=== PATIENT | male | born 1930 | race Caucasian/White ===

== ENCOUNTER 2017-07-21 20:32 | Inpatient (IN) | payer MEDICARE, BC ==
[2017-07-21] MEDS ORDERED: Acetaminophen 325 MG Tab PO ONE (21:40)
[2017-07-21 21:45] LABS: ANION GAP 12.5; CHLORIDE,CL 97 mmol/L (101-111); SODIUM,NA 130 mmol/L (135-145)
[2017-07-21] MEDS ORDERED: Albuterol/Ipratropium 3.0-0.5 MG/3 ML Neb Soln NEB ONE (21:47)
--- NOTE | 2017-07-21 22:27 | EDM.PDOC ---
ED HPI GENERAL MEDICAL PROBLEM - General Chief Complaint: Respiratory Problem Stated Complaint: HARD TIME BREADHING [id number] Time Seen by Provider: 07/21/17 20:50 Source of Information: Reports: Patient History Limitations: Reports: Other (hearing deficit) - History of Present Illness INITIAL COMMENTS - FREE TEXT/NARRATIVE: c/o cough and congestion since yesterday. Chest rib pain with cough. Appetite less tonight. No vomiting. Nasal congestion Anterior Chest Pain Score (Numeric/FACES): 1 - Related Data Allergies Allergy/AdvReac Type Severity Reaction Status Date / Time No Known Allergies Allergy Verified 07/21/17 20:57 Home Meds: Home Meds Acetaminophen 650 mg PO Q6HR PRN 07/21/17 [History] Aspirin [Halfprin] 1 tab PO DAILY 07/21/17 [History] Atenolol 1 tab PO BID 07/21/17 [History] Cholecalciferol (Vitamin D3) [Vitamin D] 400 units PO DAILY 07/21/17 [History] Docusate Sodium 100 mg PO BID 07/21/17 [History] Finasteride 5 mg PO DAILY 07/21/17 [History] Glucosamine/D3/Boswellia Monica [Glucosamine Complex Tablet] 1 tab PO DAILY 07/21 [History] Hydrochlorothiazide 25 mg PO DAILY 07/21/17 [History] Lisinopril 10 mg PO DAILY 07/21/17 [History] Potassium Bicarbonate 99 mg PO DAILY 07/21/17 [History] Tamsulosin [Flomax] 1 cap PO DAILY 07/21/17 [History] Timolol [Betimol 0.5% Ophth Soln] 1 drop EYEBOTH BID 07/21/17 [History] atorvaSTATin [Lipitor] 1 tab PO DAILY 07/21/17 [History] Past Medical History HEENT History: Reports: Cataract, Hard of Hearing, Impaired Vision Cardiovascular History: Reports: High Cholesterol, Hypertension Genitourinary History: Reports: Prostate Disorder Musculoskeletal History: Reports: Arthritis, Back Pain, Chronic, Other (See Below) Other Musculoskeletal History: knees bother him. Neurological History: Reports: CVA - Infectious Disease History Infectious Disease History: Reports: Shingles - Past Surgical History HEENT Surgical History: Reports: Cataract Surgery GI Surgical History: Reports: Appendectomy Social & Family History - Family History Family Medical History: Noncontributory - Tobacco Use Smoking Status *Q: Current Every Day Smoker Years of Tobacco use: 20 Packs/Tins Daily: 0.1 Month/Year Tobacco Last Used: apr - Caffeine Use Caffeine Use: Reports: Coffee - Alcohol Use Days Per Week of Alcohol Use: 7 Number of Drinks Per Day: 1 Total Drinks Per Week: 7 - Recreational Drug Use Recreational Drug Use: No ED ROS GENERAL - Review of Systems Review Of Systems: ROS reveals no pertinent complaints other than HPI. ED EXAM, GENERAL - Physical Exam Exam: See Below Exam Limited By: No Limitations General Appearance: Alert, No Apparent Distress Eye Exam: Bilateral Eye: EOMI Ears: Normal External Exam, Normal TMs, Hearing Loss Nose: Normal Inspection Throat/Mouth: Normal Inspection, Normal Lips Head: Atraumatic, Normocephalic Respiratory/Chest: No Respiratory Distress, Rhonchi (bilateral greater on right , ocassional loose bronchial cough.) Cardiovascular: Normal Peripheral Pulses, Regular Rate, Rhythm Back Exam: Normal Inspection, Full Range of Motion Neurological: Alert, Oriented, Normal Cognition Psychiatric: Normal Affect Skin Exam: Warm, Dry, Intact, Normal Color Course - Vital Signs Last Recorded V/S: Last Vital Signs Temp 103.5 F H 07/21/17 22:24 Pulse 65 07/21/17 22:24 Resp 22 H 07/21/17 22:24 BP 160/69 H 07/21/17 22:24 Pulse Ox 95 07/21/17 22:24 - Orders/Labs/Meds Orders: Active Orders 24 hr Category Date Time Status EKG Documentation Completion [RC] URGENT Care 07/21/17 21:03 Active RT Aerosol Therapy [RC] ASDIRECTED Care 07/21/17 21:47 Active CULTURE BLOOD [BC] Stat Lab 07/21/17 22:30 Ordered CULTURE BLOOD [BC] Stat Lab 07/21/17 22:30 Ordered Levofloxacin/Dextrose 5%-Water [Levaquin in D5W 500 MG/ Med 07/21/17 22:29 Active 100 ML] 500 mg Premix Bag 1 bag IV ONETIME Blood Culture x2 Reflex Set [OM.PC] Stat Oth 07/21/17 22:30 Ordered Medication Orders Levofloxacin/Dextrose 500 mg/ (Premix) 100 mls @ 100 mls/hr IV ONETIME ONE Stop: 07/21/17 23:28 Labs: Laboratory Tests 0407/21/17 07/21/17 Range/Units 21:15 21:15 21:15 WBC 6.1 (5.0-10.0) 10^3/uL RBC 3.99 L (4.6-6.2) 10^6/uL Hgb 12.8 L (14.0-18.0) g/dL Hct 37.2 L (40.0-54.0) % MCV 93.2 (80-100) fL MCH 32.1 (27.0-34.0) pg MCHC 34.4 (33.0-35.0) g/dL Plt Count 158 (150-450) 10^3/uL Neut % (Auto) 74.7 (42.2-75.2) % Lymph % (Auto) 12.2 L (20.5-50.1) % [place] % (Auto) 9.3 H (2-8) % Eos % (Auto) 3.6 H (1.0-3.0) % Baso % (Auto) 0.2 (0.0-1.0) % Sodium 130 L (135-145) mmol/L Potassium 3.5 L (3.6-5.0) mmol/L Chloride 97 L (101-111) mmol/L Carbon Dioxide 24.0 (21.0-31.0) mmol/L Anion Gap 12.5 BUN 13 (7-18) mg/dL Creatinine 0.9 (0.6-1.3) mg/dL Est Cr Clr Drug Dosing 49.35 mL/min Estimated GFR (MDRD) > 60 BUN/Creatinine Ratio 14.44 Glucose 102 (74-105) mg/dL Lactic Acid 1.3 (0.5-2.2) mmol/L Calcium 8.5 (8.4-10.2) mg/dl Total Bilirubin 0.8 (0.2-1.0) mg/dL AST 23 (10-42) IU/L ALT 27 (10-60) IU/L Alkaline Phosphatase 66 (42-121) IU/L Troponin I < 0.02 (0.00-0.02) ng/ml Total Protein 6.7 (6.7-8.2) g/dl Albumin 3.7 (3.2-5.5) g/dl Globulin 3.0 Albumin/Globulin Ratio 1.23 Meds: Medications Generic Name Dose Route Start Last Admin Trade Name Freq PRN Reason Stop Dose Admin Levofloxacin/Dextrose 500 mg/ 100 mls @ 100 mls/hr 07/21/17 22:29 Premix IV 07/21/17 23:28 ONETIME ONE Discontinued Medications Generic Name Dose Route Start Last Admin Trade Name Freq PRN Reason Stop Dose Admin Acetaminophen 650 mg 07/21/17 21:40 07/21/17 21:44 Tylenol PO 07/21/17 21:41 650 mg NOW ONE Administration Albuterol/Ipratropium 3 ml 07/21/17 21:47 07/21/17 21:54 Duoneb 3.0-0.5 Mg/3 Ml NEB 07/21/17 21:48 3 ml ONETIME ONE Administration - Re-Assessments/Exams Free Text/Narrative Re-Assessment/Exam: 07/21/17 22:30 coarse rhonchi improved on right, Improved exchange left lower psot neb treatment, Cough loosened, productive at times. Temperature continues. 07/21/17 22:[address] Noriega, accepting of patient for admission Departure - Departure Time of Disposition: 22:23 Disposition: Admitted As Inpatient 64 Condition: Good Clinical Impression: Hyponatremia, History of CVA (cerebrovascular accident) Pneumonia Qualifiers: Pneumonia type: due to unspecified organism Laterality: right Lung location: lower lobe of lung Qualified Code(s): J18.1 - Lobar pneumonia, unspecified organism Hypertension Qualifiers: Hypertension type: essential hypertension Qualified Code(s): I10 - Essential ( primary) hypertension - Discharge Information Referrals: PCP,None [Primary Care Provider] - Forms: ED Department Discharge - My Orders Last 24 Hours: My Active Orders 07/21/17 21:03 EKG Documentation Completion [RC] URGENT 07/21/17 21:47 RT Aerosol Therapy [RC] ASDIRECTED 07/21/17 22:29 Levofloxacin/Dextrose 5%-Water [Levaquin in D5W 500 MG/100 ML] 500 mg Premix Bag 1 bag IV ONETIME 07/21/17 22:30 CULTURE BLOOD [BC] Stat CULTURE BLOOD [BC] Stat Blood Culture x2 Reflex Set [OM.PC] Stat - Assessment/Plan Last 24 Hours: My Active Orders 07/21/17 21:03 EKG Documentation Completion [RC] URGENT 07/21/17 21:47 RT Aerosol Therapy [RC] ASDIRECTED 07/21/17 22:29 Levofloxacin/Dextrose 5%-Water [Levaquin in D5W 500 MG/100 ML] 500 mg Premix Bag 1 bag IV ONETIME 07/21/17 22:30 CULTURE BLOOD [BC] Stat CULTURE BLOOD [BC] Stat Blood Culture x2 Reflex Set [OM.PC] Stat
[2017-07-21] MEDS ORDERED: Levofloxacin/Dextrose 5%-Water 500 MG in Premix Bag 1 BAG IV ONE (22:29)
[2017-07-21] MEDS ORDERED: Sodium Chloride 0.9% 1,000 ML IV ONE (22:34)
[2017-07-21] MEDS: cefTRIAXone 1 GM Vial IVPUSH SCH (23:52)
[2017-07-21] MEDS: Azithromycin 500 MG in Sodium Chloride 0.9% 250 ML IV SCH (23:53)
--- NOTE | 2017-07-22 00:13 | HP ---
CHIEF COMPLAINT: Shortness of breath. HISTORY OF PRESENT ILLNESS: The patient is an 86-year-old gentleman, who was admitted through the emergency room because of shortness of breath, fever, and pleuritic chest discomfort that has been going on for the last 24 to 48 hours. The patient denies though any orthopnea, PND, abdominal pain, dysuria, diarrhea, or any other complaints. PAST MEDICAL HISTORY: Remarkable for: 1. Dyslipidemia. 2. Hypertension. 3. BPH. SOCIAL HISTORY: The patient is . Nonsmoker. Drinks beer on a regular basis. FAMILY HISTORY: Noncontributory. MEDICATIONS: Home medications: 1. Lipitor. 2. Timolol eye drops. 3. Flomax. 4. Potassium bicarbonate. 5. Lisinopril. 6. Hydrochlorothiazide. 7. Glucosamine. 8. Finasteride. 9. Docusate. 10.Cholecalciferol. 11.Atenolol. 12.Aspirin. 13.Acetaminophen. ALLERGIES: No known drug allergies. REVIEW OF SYSTEMS: As in HPI. The rest of the review of systems is negative. PHYSICAL EXAMINATION: General: Very pleasant gentleman. The patient is alert and oriented, not in any acute distress. The patient's an is present with the interview. Vital Signs: Blood pressure is 164/60, pulse of 71, respirations 20, temperature is 100.8, saturation is 95% on room air HEENT: Normocephalic. There is pink palpebral conjunctiva. Sclerae anicteric. No JVD. No lymphadenopathy. Heart: Regular rate and rhythm. Normal S1 and S2. No gallops. No rubs. Lungs: Equal bilaterally. There is rhonchi and mild expiratory wheeze on the right lung field. Abdomen: Soft and nontender. Bowel sounds positive. Extremities: Negative for any significant pedal edema. No calf tenderness. LABORATORY DATA: CBC; WBC is 6.1, hemoglobin is 12.8, hematocrit 37.2, platelet is 158. Comp panel sodium is 130, potassium is 3.5, chloride of 97. The rest of the panel unremarkable. Urinalysis unremarkable. Troponin is less than 0.02. EKG is sinus rhythm with left bundle-branch block. An official report of the chest x-ray is negative for any gross pathology. ADMITTING DIAGNOSES: 1. Shortness of breath and fever, suspected pneumonia. 2. Hypertension. 3. Benign prostatic hypertrophy. TREATMENT PLAN: The patient is going to be admitted to General Medicine floor. He will be empirically started on IV antibiotics with Rocephin and Zithromax. He will be given albuterol nebulization. He will be started on IV fluids and DVT prophylaxis with low molecular heparin. Blood cultures were already sent and the rest of the management as necessary. The patient is do not resuscitate and do not intubate. [facility] /[id number]
[2017-07-22 06:59] LABS: ANION GAP 10.3; CHLORIDE,CL 98 mmol/L (101-111); SODIUM,NA 130 mmol/L (135-145)
[2017-07-22] MEDS: Albuterol/Ipratropium 3.0-0.5 MG/3 ML Neb Soln NEB SCH ×3 (07:14→22:00)
[2017-07-22] MEDS ORDERED: Potassium Chloride 10 MEQ Tab.ER PO ONE (07:42)
--- NOTE | 2017-07-22 09:12 | PN ---
DATE: 07/22/2017 SUBJECTIVE: The patient is doing well. He mentioned that he did not have good night sleep, but overall his breathing is much better, and he denies any chest pain, and actually asking when he can go home. LABORATORY DATA: Lab workup this morning, CBC; WBC is 8.4, hemoglobin is 12, hematocrit is 34.2, platelet is 142. Chem-6; potassium is 3.3, sodium is 130, chloride of 98. OBJECTIVE: Vital Signs: Blood pressure is 133/57, pulse of 73, respirations 20, saturation is 95% on room air. Heart: Regular rate and rhythm. Normal S1 and S2. No gallops. No rubs. Lungs: Equal bilaterally. No crackles, no wheezing (improvement). Abdomen: Soft, nontender. Bowel sounds positive. Extremities: Negative for any significant pedal edema. No calf tenderness. MEDICATIONS: Reviewed. PLAN: We will continue with his present management. I am going to give him potassium chloride 40 mEq p.o. x1 today, and we will continue with IV fluids with normal saline, and we will recheck a basic metabolic panel in a.m. [facility] /[id number]
[2017-07-22] MEDS: Enoxaparin 40 MG/0.4 ML Syringe SUBCUT SCH (09:33)
[2017-07-22] MEDS: Finasteride 5 MG Tab PO SCH (09:34)
[2017-07-22] MEDS: Docusate Sodium 100 MG Cap PO SCH ×2 (09:34→20:31)
[2017-07-22] MEDS: Hydrochlorothiazide 25 MG Tab PO SCH (09:34)
[2017-07-22] MEDS: atorvaSTATin 20 MG Tab PO SCH (09:34)
[2017-07-22] MEDS: Tamsulosin 0.4 MG Cap.ER PO SCH (09:34)
[2017-07-22] MEDS: Lisinopril 10 MG Tab PO SCH (09:35)
[2017-07-22] MEDS: Atenolol 50 MG Tab PO SCH ×2 (09:35→20:33)
[2017-07-22] MEDS: Aspirin 81 MG Tab.EC PO SCH (09:35)
[2017-07-22] MEDS: Sodium Chloride 0.9% 1,000 ML IV SCH (12:07)
[2017-07-22] MEDS: TIMOLOL 0.5% EYERT SCH ×2 (16:28→20:33)
[2017-07-22] MEDS: POTASSIUM 99 MG PO SCH (16:29)
[2017-07-22] MEDS: GLUCOSAMINE 1000 MG PO SCH (16:30)
[2017-07-22] MEDS: Acetaminophen 325 MG Tab PO PRN (20:31)
[2017-07-22] MEDS: Azithromycin 500 MG in Sodium Chloride 0.9% 250 ML IV SCH (20:31)
[2017-07-22] MEDS: cefTRIAXone 1 GM Vial IVPUSH SCH (22:00)
[2017-07-23] MEDS: Sodium Chloride 0.9% 1,000 ML IV SCH (01:54)
[2017-07-23 07:12] LABS: ANION GAP 8.8; CHLORIDE,CL 102 mmol/L (101-111); SODIUM,NA 136 mmol/L (135-145)
[2017-07-23] MEDS: Albuterol/Ipratropium 3.0-0.5 MG/3 ML Neb Soln NEB SCH ×3 (07:36→22:39)
[2017-07-23] MEDS: Docusate Sodium 100 MG Cap PO SCH ×2 (09:12→21:59)
[2017-07-23] MEDS: Finasteride 5 MG Tab PO SCH (09:12)
[2017-07-23] MEDS: Enoxaparin 40 MG/0.4 ML Syringe SUBCUT SCH (09:12)
[2017-07-23] MEDS: Atenolol 50 MG Tab PO SCH ×2 (09:13→21:52)
[2017-07-23] MEDS: atorvaSTATin 20 MG Tab PO SCH (09:13)
[2017-07-23] MEDS: Acetaminophen 325 MG Tab PO PRN (09:14)
[2017-07-23] MEDS: Aspirin 81 MG Tab.EC PO SCH (09:14)
[2017-07-23] MEDS: Tamsulosin 0.4 MG Cap.ER PO SCH (09:14)
[2017-07-23] MEDS: Hydrochlorothiazide 25 MG Tab PO SCH (09:15)
[2017-07-23] MEDS: Lisinopril 10 MG Tab PO SCH (09:15)
[2017-07-23] MEDS: POTASSIUM 99 MG PO SCH (09:16)
[2017-07-23] MEDS: GLUCOSAMINE 1000 MG PO SCH (09:16)
[2017-07-23] MEDS: TIMOLOL 0.5% EYERT SCH ×2 (09:17→21:59)
--- NOTE | 2017-07-23 11:44 | PN ---
DATE: 07/23/2017 SUBJECTIVE: The patient is feeling a little bit better this morning, and he mentioned that he had a good night sleep, but now he is coughing up some productive phlegm, and he still complains of occasional shortness of breath but usually improves with neb treatments. Otherwise, he denies any fever, chills, headaches, chest pain, orthopnea, PND, abdominal pain, or any other complaints. LABORATORY DATA: Lab workup this morning: Chem-6 is unremarkable (improvement). OBJECTIVE: Vital Signs: Blood pressure is 178/64, pulse of 61, respirations of 20, and saturation is 97% on room air. Heart: Regular rate and rhythm. Normal S1 and S2. No gallops. No rubs. Lungs: Equal bilaterally. There are some faint crackles on the right lung base. No wheezing. Abdomen: Soft and nontender. Bowel sounds are positive. Extremities: Negative for any calf tenderness and there is no significant pedal edema. MEDICATIONS: Reviewed. PLAN: We will continue with his IV antibiotics and continue with the rest of his management. I am going to discontinue now his IV fluids as his appetite has been good; and his sodium, chloride, and potassium have been corrected. [facility] /[id number]
[2017-07-23] MEDS: Azithromycin 500 MG in Sodium Chloride 0.9% 250 ML IV SCH (20:30)
[2017-07-23] MEDS: cefTRIAXone 1 GM Vial IVPUSH SCH (21:57)
[2017-07-24] MEDS: Albuterol/Ipratropium 3.0-0.5 MG/3 ML Neb Soln NEB SCH ×3 (07:44→17:58)
[2017-07-24] MEDS: Enoxaparin 40 MG/0.4 ML Syringe SUBCUT SCH (08:38)
[2017-07-24] MEDS: Acetaminophen 325 MG Tab PO PRN (08:38)
[2017-07-24] MEDS: Lisinopril 10 MG Tab PO SCH (08:39)
[2017-07-24] MEDS: atorvaSTATin 20 MG Tab PO SCH (08:39)
[2017-07-24] MEDS: Hydrochlorothiazide 25 MG Tab PO SCH (08:40)
[2017-07-24] MEDS: Tamsulosin 0.4 MG Cap.ER PO SCH (08:40)
[2017-07-24] MEDS: Finasteride 5 MG Tab PO SCH (08:40)
[2017-07-24] MEDS: Atenolol 50 MG Tab PO SCH ×2 (08:40→20:52)
[2017-07-24] MEDS: Aspirin 81 MG Tab.EC PO SCH (08:40)
[2017-07-24] MEDS: POTASSIUM 99 MG PO SCH (08:43)
[2017-07-24] MEDS: TIMOLOL 0.5% EYERT SCH ×2 (08:43→20:48)
[2017-07-24] MEDS: Docusate Sodium 100 MG Cap PO SCH ×2 (08:47→20:50)
[2017-07-24] MEDS: GLUCOSAMINE 1000 MG PO SCH (08:50)
--- NOTE | 2017-07-24 12:19 | PCM.PN ---
- General Info Date of Service: 07/24/17 Admission Dx/Problem (Free Text): Probable pneumonia Subjective Update: Patient stated that he is feeling better. His cough more loose now and he is coughing up green phlegm. He said his shortness of breath and weakness are better. He denies choking on food or difficulty swallowing. He denies fever, chills, nausea, vomiting, chest pain, abdominal pain, diarrhea, urinary symptoms , unilateral weakness/numbness/tingling, any other symptoms or concerns - Patient Data Vitals - Most Recent: Last Vital Signs Temp 36.7 C 07/23/17 22:00 Pulse 69 07/24/17 08:40 Resp 20 07/23/17 22:00 BP 140/52 L 07/24/17 08:40 Pulse Ox 97 07/23/17 22:00 Weight - Most Recent: 76.839 kg I&O - Last 24 Hours: Intake & Output 07/23/17 07/24/17 07/24/17 22:59 06:59 14:59 Intake Total 450 250 Output Total 300 Balance 150 250 Cristian Results Last 24 Hours: Microbiology 07/21/17 21:20 Aerobic Blood Culture - Preliminary Blood - Venous NO GROWTH AFTER 2 DAYS Anaerobic Blood Culture - Preliminary NO GROWTH AFTER 2 DAYS 07/21/17 21:15 Aerobic Blood Culture - Preliminary Blood - Venous - Lab Draw NO GROWTH AFTER 2 DAYS Anaerobic Blood Culture - Preliminary NO GROWTH AFTER 2 DAYS Med Orders - Current: Current Medications Acetaminophen (Tylenol) 650 mg PO Q4H PRN PRN Reason: Pain (Mild 1-3)/fever Last Admin: 07/24/17 08:38 Dose: 650 mg Albuterol/Ipratropium (Duoneb 3.0-0.5 Mg/3 Ml) 3 ml NEB Q8HRRT [facility] Last Admin: 07/24/17 07:44 Dose: 3 ml Aspirin (Halfprin) 81 mg PO DAILY [facility] Last Admin: 07/24/17 08:40 Dose: 81 mg Atenolol (Tenormin) 50 mg PO BID [facility] Last Admin: 07/24/17 08:40 Dose: 50 mg Atorvastatin Calcium (Lipitor) 40 mg PO DAILY [facility] Last Admin: 07/24/17 08:39 Dose: 40 mg Ceftriaxone Sodium (Rocephin) 1 gm IVPUSH DAILY@2200 [facility] Last Admin: 07/23/17 21:57 Dose: 1 gm Docusate Sodium (Colace) 100 mg PO BID [facility] Last Admin: 07/24/17 08:47 Dose: Not Given Enoxaparin Sodium (Lovenox) 40 mg SUBCUT DAILY [facility] Last Admin: 07/24/17 08:38 Dose: 40 mg Finasteride (Proscar) 5 mg PO DAILY [facility] Last Admin: 07/24/17 08:40 Dose: 5 mg Hydrochlorothiazide (Hydrochlorothiazide) 25 mg PO DAILY [facility] Last Admin: 07/24/17 08:40 Dose: 25 mg Azithromycin 500 mg/ Sodium (Chloride) 250 mls @ 250 mls/hr IV DAILY@1999 [facility] Last Admin: 07/23/17 20:30 Dose: 250 mls/hr Lisinopril (Prinivil) 10 mg PO DAILY [facility] Last Admin: 07/24/17 08:39 Dose: 10 mg Glucosamine 1000 Mg (Tab Own Med) 0 tab PO DAILY [facility] Last Admin: 07/24/17 08:50 Dose: 1 tab Potassium 99 Mg (Own Med) 0 mg PO DAILY [facility] Last Admin: 07/24/17 08:43 Dose: 99 mg Timolol 0.5% Own (Med) 0 drop EYERT BID [facility] Last Admin: 07/24/17 08:43 Dose: 1 drop Tamsulosin HCl (Flomax) 0.4 mg PO DAILY [facility] Last Admin: 07/24/17 08:40 Dose: 0.4 mg Discontinued Medications Acetaminophen (Tylenol) 650 mg PO NOW ONE Stop: 07/21/17 21:41 Last Admin: 07/21/17 21:44 Dose: 650 mg Albuterol/Ipratropium (Duoneb 3.0-0.5 Mg/3 Ml) 3 ml NEB ONETIME ONE Stop: 07/21/17 21:48 Last Admin: 07/21/17 21:54 Dose: 3 ml Levofloxacin/Dextrose 500 mg/ (Premix) 100 mls @ 100 mls/hr IV ONETIME ONE Stop: 07/21/17 23:28 Last Admin: 07/21/17 22:41 Dose: 100 mls/hr Sodium Chloride (Normal Saline) 1,000 mls @ 75 mls/hr IV .BOLUS ONE Stop: 07/22/17 11:53 Last Infusion: 07/21/17 22:58 Dose: 75 mls/hr Sodium Chloride (Normal Saline) 1,000 mls @ 75 mls/hr IV ASDIRECTED [facility] Last Admin: 07/23/17 01:54 Dose: 75 mls/hr Potassium Chloride (Klor-Con 10) 40 meq PO ONETIME ONE Stop: 07/22/17 07:43 Last Admin: 07/22/17 09:34 Dose: 40 meq - Exam General: Alert, Oriented, Cooperative, No Acute Distress. No: Moderate Distress , Severe Distress, Sedated, Lethargic, Obtunded HEENT: Pupils Equal, Pupils Reactive, EOMI, Mucous Membr. Moist/[place] Neck: Supple, Trachea Midline, No JVD Lungs: Decreased Breath Sounds (But fair air exchange), Crackles (Right mid and lower field), Rhonchi (Diffuse), Wheezing (Diffuse). No: Stridor Cardiovascular: Regular Rate, Regular Rhythm GI/Abdominal Exam: Normal Bowel Sounds, Soft, Non-Tender, No Organomegaly, No Distention, No Abnormal Bruit, No Mass (Male) Exam: Deferred Back Exam: Normal Inspection, Full Range of Motion. No: CVA Tenderness (L), CVA Tenderness (R) Extremities: Normal Inspection, Normal Range of Motion, Non-Tender, No Pedal Edema Neurological: No New Focal Deficit Psy/Mental Status: Alert, Normal Affect, Normal Mood - Problem List & Annotations (1) History of CVA (cerebrovascular accident) SNOMED Code(s): 892057505 Code(s): Z86.73 - PRSNL HX OF TIA (TIA), AND CEREB INFRC W/O RESID DEFICITS Status: Acute Current Visit: Yes (2) Hypertension SNOMED Code(s): 38510954 Code(s): I10 - ESSENTIAL (PRIMARY) HYPERTENSION Status: Acute Current Visit: Yes Qualifiers: Hypertension type: essential hypertension Qualified Code(s): I10 - Essential (primary) hypertension (3) Hyponatremia SNOMED Code(s): 57011158 Code(s): E87.1 - HYPO-OSMOLALITY AND HYPONATREMIA Status: Acute Current Visit: Yes (4) Pneumonia SNOMED Code(s): 084796574 Code(s): J18.9 - PNEUMONIA, UNSPECIFIED ORGANISM Status: Acute Current Visit: Yes Qualifiers: Pneumonia type: due to unspecified organism Laterality: right Lung location: lower lobe of lung Qualified Code(s): J18.1 - Lobar pneumonia, unspecified organism - Problem List Review Problem List Initiated/Reviewed/Updated: Yes - My Orders Last 24 Hours: My Active Orders 07/24/17 09:51 OT Evaluation and Treatment [CONS] Routine 07/24/17 10:21 CXR [Chest 2V] [CR] Routine 07/25/17 05:11 BASIC METABOLIC PANEL,BMP [CHEM] Routine CBC WITH AUTO DIFF [HEME] AM - Plan Plan:: 86-year-old male with the past medical history of hypertension, hyperlipidemia and remote history of smoking who denies history of COPD, presented to the emergency room for having shortness breath, cough, fever and was admitted for probably pneumonia. Probable pneumonia with possible exacerbated airway reactive disease Would continue Rocephin and azithromycin -Repeat chest x-ray - had concern about aspiration so swallowing eval by OT was done and there was no concern about aspiration. -DuoNeb every 6 hours -Start prednisone 40 mg daily Hypertension Continue home antihypertensive medications Lovenox for DVT prophylaxis
[2017-07-24] MEDS: predniSONE 20 MG Tab PO SCH (14:03)
[2017-07-24] MEDS ORDERED: Levofloxacin/Dextrose 5%-Water 750 MG in Premix Bag 1 BAG IV SCH (18:00)
[2017-07-24] MEDS ORDERED: Sodium Chloride 0.9% 10 ML Syringe FLUSH PRN (18:30)
[2017-07-25] MEDS: Albuterol/Ipratropium 3.0-0.5 MG/3 ML Neb Soln NEB SCH ×2 (00:22→07:28)
[2017-07-25 07:12] LABS: ANION GAP 13.6; CHLORIDE,CL 95 mmol/L (101-111); SODIUM,NA 131 mmol/L (135-145)
[2017-07-25] MEDS: Atenolol 50 MG Tab PO SCH (09:41)
[2017-07-25] MEDS: predniSONE 20 MG Tab PO SCH (09:41)
[2017-07-25] MEDS: Hydrochlorothiazide 25 MG Tab PO SCH (09:42)
[2017-07-25] MEDS: Docusate Sodium 100 MG Cap PO SCH (09:42)
[2017-07-25] MEDS: Aspirin 81 MG Tab.EC PO SCH (09:42)
[2017-07-25] MEDS: Tamsulosin 0.4 MG Cap.ER PO SCH (09:42)
[2017-07-25] MEDS: Finasteride 5 MG Tab PO SCH (09:42)
[2017-07-25] MEDS: POTASSIUM 99 MG PO SCH (09:42)
[2017-07-25] MEDS: Enoxaparin 40 MG/0.4 ML Syringe SUBCUT SCH (09:43)
[2017-07-25] MEDS: TIMOLOL 0.5% EYERT SCH (09:43)
[2017-07-25] MEDS: GLUCOSAMINE 1000 MG PO SCH (09:43)
[2017-07-25] MEDS ORDERED: Lisinopril 10 MG Tab PO SCH (09:45)
[2017-07-25] MEDS: Lisinopril 10 MG Tab PO SCH (09:45)
[2017-07-25] MEDS: atorvaSTATin 20 MG Tab PO SCH (09:59)
--- NOTE | 2017-07-25 11:07 | PCM.DCSUM1 ---
Discharge Summary - Hospital Course Free Text/Narrative:: 86-year-old male with the past medical history of dyslipidemia, hypertension, BPH, remote history of smoking who presented to the emergency room for having shortness of breath, fever, chest wall discomfort started 1-2 days prior to admission. He denies other symptoms. Initial chest x-ray reported no acute findings. On admission his WBC 6.1. Hemoglobin 12.8. Platelet 158. Sodium 1:30. Potassium 3.5. Patient was started on azithromycin and Rocephin. Patient was gradually getting better. had concern about aspiration however swallowing study eval by OT repaired no concern about aspiration. Patient himself denies choking or coughing while eating. Yesterday patient was feeling better and he wanted to be discharged home however chest x-ray was repeated yesterday and reported right middle lobe pneumonia so I change his DuoNeb from every 8 hours to every 6 hours and change his antibiotics to Levaquin IV. He was also started yesterday on prednisone due to wheezing and history of smoking. He denies history of COPD. Patient felt much better since yesterday and he wants to go home today. He declines sitting in the hospital. He actually looks much better. His lung exam is almost normal except globally diminished sounds which is expected for his age. Patient was advised to follow-up with his primary care provider and address whether he has COPD or not. So he needs to check his sodium. Her sodium has been fluctuating and today is 130. Repeat chest x-ray in 4 weeks and if no resolution of the pneumonia then I recommend CT scan of the chest. He will be discharged home on home medications in addition to albuterol, and 4 days of Levaquin and prednisone - Discharge Data Discharge Date: 07/25/17 Discharge Disposition: Home, Self-Care 01 Condition: Good - Discharge Diagnosis/Problem(s) (1) History of CVA (cerebrovascular accident) SNOMED Code(s): 966128267 ICD Code: Z86.73 - PRSNL HX OF TIA (TIA), AND CEREB INFRC W/O RESID DEFICITS Status: Chronic Current Visit: Yes (2) Hypertension SNOMED Code(s): 94121400 ICD Code: I10 - ESSENTIAL (PRIMARY) HYPERTENSION Status: Chronic Current Visit: Yes Qualifiers: Hypertension type: essential hypertension Qualified Code(s): I10 - Essential (primary) hypertension (3) Hyponatremia SNOMED Code(s): 16967954 ICD Code: E87.1 - HYPO-OSMOLALITY AND HYPONATREMIA Status: Acute Current Visit: Yes (4) Pneumonia SNOMED Code(s): 066796390 ICD Code: J18.9 - PNEUMONIA, UNSPECIFIED ORGANISM Status: Acute Priority : High Current Visit: Yes Qualifiers: Pneumonia type: due to unspecified organism Laterality: right Lung location: lower lobe of lung Qualified Code(s): J18.1 - Lobar pneumonia, unspecified organism - Patient Summary/Data Consults: Consultations 07/24/17 09:51 OT Evaluation and Treatment [CONS] Routine - Patient Instructions Diet: Heart Healthy Diet Activity: As Tolerated Showering/Bathing: August Shower Notify Provider of: Fever, Nausea and/or Vomiting - Discharge Plan Prescriptions/Med Rec: Albuterol [Proair HFA] 2 puff INH Q4HR PRN #1 inhaler PRN Reason: shortness of breath, cough Levofloxacin/Dextrose 5%-Water [Levaquin/D5W] 750 mg IV Q24H #5 bag Lisinopril [Prinivil] 20 mg PO DAILY 30 Days #30 tablet Prednisone [IJD: predniSONE] 40 mg PO WITHBREAKFAST #8 tablet Home Medications: Home Meds Acetaminophen 650 mg PO Q6HR PRN 07/21/17 [History] Aspirin [Halfprin] 1 tab PO DAILY 07/21/17 [History] Atenolol 1 tab PO BID 07/21/17 [History] Docusate Sodium 100 mg PO BID 07/21/17 [History] Finasteride 5 mg PO DAILY 07/21/17 [History] Glucosamine/D3/Boswellia Monica [Glucosamine Complex Tablet] 1 tab PO DAILY 07/21 [History] Hydrochlorothiazide 25 mg PO DAILY 07/21/17 [History] Potassium Bicarbonate 99 mg PO DAILY 07/21/17 [History] Tamsulosin [Flomax] 1 cap PO DAILY 07/21/17 [History] Timolol [Betimol 0.5% Ophth Soln] 1 drop .ROUTE BID 07/21/17 [History] atorvaSTATin [Lipitor] 1 tab PO DAILY 07/21/17 [History] Albuterol [Proair HFA] 2 puff INH Q4HR PRN #1 inhaler 07/25/17 [Rx] Levofloxacin/Dextrose 5%-Water [Levaquin/D5W] 750 mg IV Q24H #5 bag 07/25/17 [Rx ] Lisinopril [Prinivil] 20 mg PO DAILY 30 Days #30 tablet 07/25/17 [Rx] Prednisone [IJD: predniSONE] 40 mg PO WITHBREAKFAST #8 tablet 07/25/17 [Rx] Patient Handouts: Hyponatremia, Community-Acquired Pneumonia, Adult Referrals: PCP,None [Ordering Only Provider] - - General Info Date of Service: 07/25/17 Admission Dx/Problem (Free Text: Probable pneumonia Subjective Update: Patient stated that he is feeling much better. His cough is better. He denies shortness of breath. His energy is back to normal. He denies choking on food or difficulty swallowing. He denies fever, chills, nausea, vomiting, chest pain, abdominal pain, diarrhea, urinary symptoms, unilateral weakness/numbness/ tingling, any other symptoms or concerns - Patient Data Vitals - Most Recent: Last Vital Signs Temp 37.0 C 07/25/17 08:00 Pulse 69 07/25/17 09:41 Resp 18 07/25/17 08:00 BP 174/67 H 07/25/17 09:41 Pulse Ox 96 07/25/17 08:00 Weight - Most Recent: 76.839 kg I&O - Last 24 hours: Intake & Output 07/24/17 07/25/17 07/25/17 22:59 06:59 14:59 Intake Total 658 400 Output Total 300 Balance 358 400 Lab Results - Last 24 hrs: Laboratory Results - last 24 hr 07/25/17 07/25/17 Range/Units 06:20 06:20 WBC 4.1 L (5.0-10.0) 10^3/uL RBC 3.55 L (4.6-6.2) 10^6/uL Hgb 11.3 L (14.0-18.0) g/dL Hct 32.7 L (40.0-54.0) % MCV 92.1 (80-100) fL MCH 31.8 (27.0-34.0) pg MCHC 34.6 (33.0-35.0) g/dL Plt Count 170 (150-450) 10^3/uL Neut % (Auto) 81.5 H (42.2-75.2) % Lymph % (Auto) 10.6 L (20.5-50.1) % [place] % (Auto) 7.7 (2-8) % Eos % (Auto) 0.0 L (1.0-3.0) % Baso % (Auto) 0.2 (0.0-1.0) % Sodium 131 L (135-145) mmol/L Potassium 3.6 (3.6-5.0) mmol/L Chloride 95 L (101-111) mmol/L Carbon Dioxide 26.0 (21.0-31.0) mmol/L Anion Gap 13.6 BUN 10 (7-18) mg/dL Creatinine 0.7 (0.6-1.3) mg/dL Est Cr Clr Drug Dosing 65.83 mL/min Estimated GFR (MDRD) > 60 Glucose 118 H (74-105) mg/dL Calcium 8.7 (8.4-10.2) mg/dl GENNA Results - Last 24 hrs: Microbiology 07/21/17 21:20 Aerobic Blood Culture - Preliminary Blood - Venous NO GROWTH AFTER 3 DAYS Anaerobic Blood Culture - Preliminary NO GROWTH AFTER 3 DAYS 07/21/17 21:15 Aerobic Blood Culture - Preliminary Blood - Venous - Lab Draw NO GROWTH AFTER 3 DAYS Anaerobic Blood Culture - Preliminary NO GROWTH AFTER 3 DAYS Med Orders - Current: Current Medications Acetaminophen (Tylenol) 650 mg PO Q4H PRN PRN Reason: Pain (Mild 1-3)/fever Last Admin: 07/24/17 08:38 Dose: 650 mg Albuterol/Ipratropium (Duoneb 3.0-0.5 Mg/3 Ml) 3 ml NEB Q6HRRT [facility] Last Admin: 07/25/17 07:28 Dose: 3 ml Aspirin (Halfprin) 81 mg PO DAILY [facility] Last Admin: 07/25/17 09:42 Dose: 81 mg Atenolol (Tenormin) 50 mg PO BID [facility] Last Admin: 07/25/17 09:41 Dose: 50 mg Atorvastatin Calcium (Lipitor) 40 mg PO DAILY [facility] Last Admin: 07/25/17 09:59 Dose: 40 mg Docusate Sodium (Colace) 100 mg PO BID [facility] Last Admin: 07/25/17 09:42 Dose: 100 mg Enoxaparin Sodium (Lovenox) 40 mg SUBCUT DAILY [facility] Last Admin: 07/25/17 09:43 Dose: 40 mg Finasteride (Proscar) 5 mg PO DAILY [facility] Last Admin: 07/25/17 09:42 Dose: 5 mg Hydrochlorothiazide (Hydrochlorothiazide) 25 mg PO DAILY [facility] Last Admin: 07/25/17 09:42 Dose: 25 mg Levofloxacin/Dextrose 750 mg/ (Premix) 150 mls @ 100 mls/hr IV Q24H [facility] Last Infusion: 07/24/17 20:04 Dose: Infused Lisinopril (Prinivil) 20 mg PO DAILY [facility] Last Admin: 07/25/17 09:41 Dose: 20 mg Glucosamine 1000 Mg (Tab Own Med) 0 tab PO DAILY [facility] Last Admin: 07/25/17 09:43 Dose: 1 tab Potassium 99 Mg (Own Med) 0 mg PO DAILY [facility] Last Admin: 07/25/17 09:42 Dose: 99 mg Timolol 0.5% Own (Med) 0 drop EYERT BID [facility] Last Admin: 07/25/17 09:43 Dose: 1 drop Prednisone (Prednisone) 40 mg PO WITHBREAKFAST [facility] Last Admin: 07/25/17 09:41 Dose: 40 mg Sodium Chloride (Saline Flush) 10 ml FLUSH ASDIRECTED PRN PRN Reason: Keep Vein Open Last Admin: 07/24/17 20:00 Dose: 10 ml Tamsulosin HCl (Flomax) 0.4 mg PO DAILY [facility] Last Admin: 07/25/17 09:42 Dose: 0.4 mg Discontinued Medications Acetaminophen (Tylenol) 650 mg PO NOW ONE Stop: 07/21/17 21:41 Last Admin: 07/21/17 21:44 Dose: 650 mg Albuterol/Ipratropium (Duoneb 3.0-0.5 Mg/3 Ml) 3 ml NEB ONETIME ONE Stop: 07/21/17 21:48 Last Admin: 07/21/17 21:54 Dose: 3 ml Albuterol/Ipratropium (Duoneb 3.0-0.5 Mg/3 Ml) 3 ml NEB Q8HRRT [facility] Last Admin: 07/24/17 07:44 Dose: 3 ml Ceftriaxone Sodium (Rocephin) 1 gm IVPUSH DAILY@2200 [facility] Last Admin: 07/23/17 21:57 Dose: 1 gm Levofloxacin/Dextrose 500 mg/ (Premix) 100 mls @ 100 mls/hr IV ONETIME ONE Stop: 07/21/17 23:28 Last Admin: 07/21/17 22:41 Dose: 100 mls/hr Sodium Chloride (Normal Saline) 1,000 mls @ 75 mls/hr IV .BOLUS ONE Stop: 07/22/17 11:53 Last Infusion: 07/21/17 22:58 Dose: 75 mls/hr Azithromycin 500 mg/ Sodium (Chloride) 250 mls @ 250 mls/hr IV DAILY@1999 [facility] Last Admin: 07/23/17 20:30 Dose: 250 mls/hr Sodium Chloride (Normal Saline) 1,000 mls @ 75 mls/hr IV ASDIRECTED [facility] Last Admin: 07/23/17 01:54 Dose: 75 mls/hr Lisinopril (Prinivil) 10 mg PO DAILY [facility] Last Admin: 07/25/17 09:45 Dose: Not Given Potassium Chloride (Klor-Con 10) 40 meq PO ONETIME ONE Stop: 07/22/17 07:43 Last Admin: 07/22/17 09:34 Dose: 40 meq - Exam General: Reports: Alert, Oriented, Cooperative, No Acute Distress. Denies: Mild Distress, Moderate Distress, Severe Distress, Sedated, Lethargic, Obtunded HEENT: Reports: Pupils Equal, Pupils Reactive, EOMI, Mucous Membr. Moist/[place] Neck: Reports: Supple, Trachea Midline, No JVD Lungs: Reports: Normal Respiratory Effort, Other. Denies: Crackles, Rales, Rhonchi, Rub, Stridor, Wheezing Cardiovascular: Reports: Regular Rate, Regular Rhythm, No Murmurs GI/Abdominal Exam: Normal Bowel Sounds, Soft, Non-Tender, No Organomegaly, No Distention, No Mass (Male) Exam: Deferred Rectal (Males) Exam: Deferred Back Exam: Reports: Normal Inspection, Full Range of Motion. Denies: CVA Tenderness (L), CVA Tenderness (R) Extremities: Normal Inspection, Normal Range of Motion, Non-Tender, No Pedal Edema, Normal Capillary Refill Skin: Reports: Warm, Dry, Intact Neurological: Reports: No New Focal Deficit, Normal Speech, Normal Tone, Strength Equal Bilateral Psy/Mental Status: Reports: Alert, Normal Affect, Normal Mood
--- NOTE | 2017-08-25 07:31 | EKG ---
07/21/2017 - DARIA SMITH - EKG is sinus rhythm with a rate of 65. There is a borderline first-degree AV block, and there is a left bundle branch block. IMPRESSION: Abnormal electrocardiogram as noted above. [facility] /[id number]
== END 2017-07-25 12:45 | disposition home or self-care (01) | DRG 194 ==
LOC: EDBD → DL.ED 20:32 → DL.MS 22:37 → UNDOADMIN 22:37 → DL.MS 23:17
PROVIDERS: ADMIT Internal Medicine; ATTEND Internal Medicine
DX: J18.1 Lobar pneumonia, unspecified organism (principal); E87.1 Hypo-osmolality and hyponatremia; J45.901 Unspecified asthma with (acute) exacerbation; F17.200 Nicotine dependence, unspecified, uncomplicated; I10 Essential (primary) hypertension; E78.00 Pure hypercholesterolemia, unspecified; E78.5 Hyperlipidemia, unspecified; N42.9 Disorder of prostate, unspecified; N40.0 Benign prostatic hyperplasia without lower urinary tract symptoms; M19.90 Unspecified osteoarthritis, unspecified site; G89.29 Other chronic pain; R06.02 Shortness of breath; R05 Cough; M54.9 Dorsalgia, unspecified; H91.90 Unspecified hearing loss, unspecified ear; H54.7 Unspecified visual loss; Z86.73 Personal history of transient ischemic attack (TIA), and cerebral infarction without residual deficits; Z79.82 Long term (current) use of aspirin; Z79.899 Other long term (current) drug therapy; Z66 Do not resuscitate; Z28.21 Immunization not carried out because of patient refusal
CPT/HCPCS: 36415; 71046; 80053; 81001; 83605; 84484; 85025; 87040 ×2; 87804 ×2; 93005; 93010; 94640; 96374; 96375; 99285; A9270; J1956; J7030; 80048; 92610-GN; J0456; J0696; J1650; J7050